=== PATIENT | female | born 2005 | race Caucasian/White ===

== ENCOUNTER 2025-10-13 07:33 | Outpatient (OUT) | payer OTHER, SELFPAY ==
--- OUTSIDE RECORDS SUMMARY | 2025-10-02 07:45 | XMS_ITS ---
Author Organization [facility] vices Address [address], [place] [id number] Care Team Providers Care Professional Bass Fisher Name Role Phone Marisol Hood Primary Care Provider Allergies Allergen (clinical drug ingredient) Drug/Non Drug Allergy documented on EMR Reaction Allergy Type Onset Date Status sulfamethoxazole / trimethoprim Bactrim Comments: hives Drug Allergy Active Results Component Value Reference Range Notes TSH WITH FT4 REFLEX Reviewed date:10/03/2025 08:48:03 AM Interpretation: Performing Lab: Notes/Report: TSH 0.289 0.270-4.200 uIU/mL The [employer] (CINDY) recommends the following reference ranges for TSH levels during : First trimester: 0.1 to 2.5 mIU/L Second trimester: 0.2 to 3.0 mIU/L Third trimester: 0.3 to 3.0 mIU/L UNLESS OTHERWISE INDICATED, ALL TESTING PERFORMED AT: [employer] [address] [place] [address] [employer] LOOM TENDER: SIM MUNOZ M.D. CLIA NUMBER [id number] [facility] ACCREDITATION AUID [id number] Reason For Referral Reason dizziness episode wi th associated speech trouble and right hand numbness Diagnosis 1 Dizziness (R42) Diagnosis 2 Seizure (R56.9) Referral Organization Main Referring Provider First Name Marisol Referring Provider Last Name Erwin Referring Provider Speciality Internal M edicine Referred Provider [facility] N eurology Referred Provider Specialty Neurology Referral Priority Routine REASON FOR VISIT [facility] d/c 09/27, Stroke like symptoms Medications Medication SIG (Take, Route, Frequency, Duration) Notes Start Date End Date Status Pepcid 20 MG Tablet 1 tablet at bedtime as needed Orally Once a day; Duration: 90 days 01/18/2022Not-Taking/PRN Social History Sex Assigned At : Social History Observation Description Sex Assigned At Female Social History Sexual History:Social InfoQuestionAnswerNotesFamily PlanningAre you or your partner planning on becoming in the next year if not already ? No Vital Signs Temperature 99.7 degrees Fahrenheit 10/02/20 25 Blood pressure systolic 95 mm Hg 10/02/20 25 Blood pressure diastolic 65 mm Hg 025 Heart Rate 68 /min 10/02/2025 Height 63.00 in 10/02/2025 Weight 123.7 lbs 10/02/2025 BMI 21.91 kg/m2 10/02/2025 Oximetry 99 % 10/02/2025 Height-cm 160.02 cm 10/02/2025 Weight-kg 56.11 kg 10/02/2025 Rosy Hess 10/02/2025 1 2:53:47 PM EST > Encounters Encounter Location Date Provider Diagnosis Main [address] [place], [place] [id number] 10/02/2025 Marisol Erwin Dizziness R42 ; Subc linical hyperthyroidism E05.90 and Seizure R56.9 Assessments Encounter Date Diagnosis (ICD Code) Assessment Notes Treatment Notes Treatment Clinical Notes Section Notes 10/02/2025 Dizziness (ICD-10 - R42) Unclear etiology, differentials considered seizure, migraine with aura, anxiety related, metabolic causes. Will get MRI to rule out brain etiologies. Also with her prior hx of seizure I will refer her to neurologist to establish care. 10/02/2025Subclinical hyperthyroidism (ICD-10 - E05.90)Prior hx, no recent labs 10/02/2025Seizure (ICD-10 - R56.9) Plan Of Treatment Treatment Notes Assessment Notes Dizziness Unclear etiology, di fferentials considered seizure, migraine with aura, anxiety related, metabolic causes. Will get MRI to rule out brain etiologies. Also with her prior hx of seizure I will refer her to neurologist to establish care. Subclinical hyperthyroidism Prior hx, no recent labs Referrals Referral Date Details 10/02/2025 10/02/2025, dizzines s episode with associated speech trouble and right hand numbness, [facility] Next Appt Details Follow Up: 4 Weeks, Reason: dizziness episode Provider Name:Marisol Hood, 11/04/2025 10:30:00 AM, [address], [place], [id number], History and Physical Notes * HPI (History of Present Illness) CategorySub-CategoryDetailNotesCategory NotesInterim History ER f/u: Pt was seen in ER on 09/27 with c/o dizziness associated with difficulty speaking and tingling in right hand started around noon and by the time in ER her symptoms resolved. Blood work including cbc cmp, trop and urine drug screen negative, CT head unremarkable. Pt was discharged with a plan to f/u in outpatient setting Presented today for f/u: She has similar symptoms when she was 11 or 12 where she was texting somebody and writing wrong word but cannot control despite knowing and right hand was numb. this time similar thing happened that she was saying wrong words and customer at work witnessed. Little bit of headache but no more symptoms when she went to ER. Today She states that her symptoms have resolved. She had a bit of a headache the day after her ER visit, but it went away A while ago in 2020 she had a seizure but when she went to hospital they couldnt find anything wrong. She was seeing a neurologist but no diagnosis was made. She also reports really sharp pain in head lasted few seconds before this dizziness episode. No more headache No concerns of anxiety or depression per pt. Denies fever/chills/nausea/ urinary or abdominal complains Examination CategorySub-CategoryDetailNotesCategory NotesGeneral Examination General appearance: alert, pleasant, well-nourished and in no acute distress. Head: normocephalic, atraumatic. Eyes: pupils equal, round, reactive to light and accommodation. Skin: skin is warm and dry, with no rashes, good skin turgor and normal hair distribution. Heart: regular rate and rhythm without murmurs, gallops, clicks or rubs. Lungs: clear to auscultation bilaterally, with good air movement and no rales, rhonchi or wheezes. Extremities: normal extremity with no clubbing, cyanosis or edema , full range of motion. Neurologic exam unremarkable, power in upper and lower extremety normal Psych: alert and oriented x 3 , cooperative with exam , normal affect / mood , speech is clear and coherent. CQM ExceptionsCurrently taking Aspirin:Aspirin Use:: No Consultation Request Notes Referral Date Referring Provider Referred Provider Not es 10/02/[address] [facility] ed Neurology, dizziness episode with associated speech trouble and right hand numbness Progress Notes * Alice MATHEW LDOB: 3 (20 yo F)Acc No.[id number]:10/02/2025 Medical Note Patient: Alice WINSTON :?Marisol Hood, MDDOB:2005???Age:20 Y???Sex: FemaleDate:10/02/2025Phone:[phone]:[address]Pcp:Stacey Lorenz In:12:46 PM EST Subjective: * Chief Complaints: * P [facility] d/c 09/27, Stroke like symptoms * HPI: ???Interim History:? ER f/u: Pt was seen in ER on 09/27 with c/o dizziness associated with difficulty speaking and tingling in right hand started around noon and by the time in ER her symptoms resolved. Blood work including cbc cmp, trop and urine drug screen negative, CT head unremarkable. Pt was discharged with a plan to f/u in outpatient setting Presented today for f/u: She has similar symptoms when she was 11 or 12 where she was texting somebody and writing wrong word but cannot control despite knowing and right hand was numb. this time similar thing happened that she was saying wrong words and customer at work witnessed. Little bit of headache but no more symptoms when she went to ER.? Today She states that her symptoms have resolved. She had a bit of a headache the day after her ER visit, but it went away A while ago in 2020 she had a seizure but when she went to hospital they couldnt find anything wrong. She was seeing a neurologist but no diagnosis was made. She also reports really sharp pain in head lasted few seconds before this dizziness episode. No more headache No concerns of anxiety or depression per pt.? Denies fever/chills/nausea/ urinary or abdominal complains. * ROS: ???Negative except mentioned above in the HPI. * Medical History: Anxiety/Depression, ProblemStatus: Active, ,? * Surgical History: None, ProblemStatus: Active, 2021-10-25? * Hospitalization/Major Diagno stic Procedure: Denies Past Hospitalization? * Family History: M igrated Family History: Brother(s), AttributeTitle: Stable, ProblemStatus: Active, ,Father, AttributeTitle: Stable, ProblemStatus: Active, ,Grandparents (maternal), AttributeTitle: , ProblemStatus: Active, ,Grandparents (paternal), AttributeTitle: Unknown, ProblemStatus: Active, ,Mother, AttributeTitle: Stable, ProblemStatus: Active, ,Sister(s), AttributeTitle: Stable, ProblemStatus: Active . * Social History: ???Sexual History:?Family Planning?Are you or your partner planning on becoming in the next year if not already ??No * Medications: N ot-Taking/PRNPepcid 20 MG Tablet 1 tablet at bedtime as needed Orally Once a day Medication List reviewed and reconciled with the patientNot-Taking/PRN Pepcid 20 MG Tablet 1 tablet at bedtime as needed Orally Once a day Medication List reviewed and reconciled with the patient * Allergies: B actrim: Comments: hives - Allergyno[Allergies Verified] Objective: * Vitals: T emp:99.7F, Wt:123.7lbs, Ht: 63.00 in, BMI:21.91Index, BP:95/65mm Hg, HR:68/min, Pain scale:01-10, Oxygen sat %:99%, Wt-k.11 kg, Ht-cm: 160.02 cm, Body Surface Area: 1.58. Deshawn Rosy 10/02/2025 12:53:47 PM EST >. * Examination: ???CQM Exceptions: ?Currently taking Aspirin:? Aspirin Use:?General Examination: ???General appearance: alert, pleasant, well-nourished and in no acute distress. Head: normocephalic, atraumatic. Eyes: pupils equal, round, reactive to light and accommodation. Skin: skin is warm and dry, with no rashes, good skin turgor and normal hair distribution. Heart: regular rate and rhythm without murmurs, gallops, clicks or rubs. Lungs: clear to auscultation bilaterally, with good air movement and no rales, rhonchi or wheezes. Extremities: normal extremity with no clubbing, cyanosis or edema , full range of motion. Neurologic exam unremarkable, power in upper and lower extremety normal Psych: alert and oriented x 3 , cooperative with exam , normal affect / mood , speech is clear and coherent. Assessment: * Assessment: 1.?Dizziness - R42 (Primary)???2.?Subclinical hyperthyroidism - E05.90 ([facility])???3.?Seizure - R56.9??? Plan: * Treatment: ?Imaging: MR head/brain w con* Notes: Unclear etiology, differentials considered seizure, migraine with aura, anxiety related, metabolic causes. Will get MRI to rule out brain etiologies. Also with her prior hx of seizure I will refer her to neurologist to establish care.? Referral To: [facility] Neurology??Neurology ?Reason:dizziness episode with associated speech trouble and right hand numbness 2.?Subclinical hyperthyroidism?LAB: TSH WITH FT4 REFLEX Notes: Prior hx, no recent labs??3.?Seizure? Referral To: [facility] Neurology??Neurology ?Reason:dizziness episode with associated speech trouble and right hand numbness * Procedure Codes: 3 078F HTN DIAST BP < 781661W HTN SYST BP < 130 * Follow Up: 4 Weeks (Reason: dizziness episode) * Billing Information: * Visit Code: 36575 Office Visit Est 20-29 minutes. * Procedure Codes: 3078F HTN DIAST BP < 80. 3074F HTN SYST BP < 130. * ign off status: Completed true * Provider: Rae Hood MD Date: 12/02/2024 Generated for Printing/Faxing/eTransmitting on:?10/13/2025 07:35 AM EST
--- OUTSIDE RECORDS SUMMARY | 2025-10-08 03:34 | XMS_ITS ---
Author Organization [facility] vices Address [address] [place], [place] [id number] Care Team Providers Care Green Hide Inspector Name Role Phone Marisol Hood Primary Care Provider [phone] REASON FOR VISIT MRI order Social History Sex Assigned At : Social History Observation Description Sex Assigned At Female Encounters Encounter Location Date Provider Diagnosis Main [address] [place], [place] [id number] 10/08/2025 Marisol Binghaml Dizziness R42 Assessments Encounter Date Diagnosis (ICD Code) Assessment Notes Treatment Notes Treatment Clinical Notes Section Notes 10/08/2025 Dizziness (ICD-10 - R42) Plan Of Treatment Pending Test Test Name Order Date MRI : Brain with and without contrast Next Appt Details Provider Name:Marisoljaky Hood, 11/04/2025 10:30:00 AM, [address] [place], [place], [id number], Progress Notes * Alice MATHEW LDOB: 3 (20 yo F)Acc No.[id number]:10/08/2025 Patient:?Alice MATHEW :2005???Age:20 Y???Sex:FemalePhone:[phone] Address:[address], [address] Subjective: * Chief Complaints: * M RI order Assessment: * Assessment: 1.?Dizziness - R42 (Primary)??? Plan: * Treatment: ?Imaging: MRI : Brain with and without contrast* Marisol Hood 10/08/2025 10: 53:23 AM EST > with associated neurologic changes * * true * Date:?Generated for Printing/Faxing/eTransmitting on:?10/13/2025 07:35 AM EST
--- NOTE | 2025-10-13 07:35 | MR_ITS ---
[address] [address] Patient Name: JENIFFER DORANTES MRN: [id number] date: 2005 Sex: F Assigned Patient Location: MRI Current Patient Location: MRI Accession/Order Number: [id number] Exam Date: 10/13/2025 07:50 Report Date: 10/13/2025 11:45 At the request of: CLAUDIA YIP MD Procedure: MR head/brain wo/w con MR head/brain wo/w con 10/13/2025 8:34 AM SIGN AND SYMPTOMS: Dizziness, headaches PROTOCOL: Multiplanar multisequence MR images of the brain with and without IV contrast CONTRAST: 11 mL of intravenous Dotarem COMPARISON: None. FINDINGS: Extra axial spaces: Age appropriate. Hemorrhage: None. Ventricular system: Within normal limits. Basal cisterns: Within normal limits and not effaced. Cerebral parenchyma: Normal in signal. Midline shift: None.. Cerebellum: Within normal limits. Brainstem: Within normal limits. OTHER: Calvarium: Normal marrow signal. Vascular system: Satisfactory flow voids within the anterior and posterior circulation. Visualized Paranasal sinuses: Within normal limits. Visualized Orbits: Within normal limits. Visualized upper cervical spine: Within normal limits. Sella and skull base: Within normal limits. MR/MR head/brain wo/w con IMPRESSION: No acute intracranial pathology or abnormal postcontrast enhancement. Impression dictated by: Gabo Velásquez M.D. 10/13/2025 11:45 AM Dictation Location: [place] [address] Electronically authenticated by: [id number] Y Date: 10/13/2025 11:45
--- OUTSIDE RECORDS SUMMARY | 2025-10-13 07:35 | XMS_ITS | Clinical Summary ---
Author Organization [facility] [employer] [facility] tem Address [id number] [address] [place] [address] Care Team Providers Care Kennel Staff Member Name Role Phone No Pcp, No Pcp Primary Care Provider Unavailabl e Allergies Active AllergyReactionsCriticalityNoted DateComments Sulfamethoxazole-TvbyqejncordTlvwv19/07/2018 Medications MedicationSigDispense QuantityRefillsLast FilledStart DateEnd DateStatus famotidine (PEPCID) 20 mg tablet Take 1 tablet (20 mg total) by mouth 2 (two) times a day. 20 tablet 1Active Additional Information Patient not taking.Reported on 09/27/2025 erythromycin (ILOTYCIN) ophthalmic ointment Place a 1/2 inch ribbon of ointment into the lower eyelid 4 times a day for 7 days. 3.5 g 2Active Additional Information Patient not taking.Reported on 09/27/2025 Active Problems No known active problems Encounters DateTypeDepartmentCare AbapDqyjrbyngkh13/08/2025 2:49 PM EST - 09/27/2025 5:05 PM ESTEmergency [facility] [address] [place] [address] Lazaro Ahumada MD Dizziness (Primary Dx) Discharge Disposition: Home09/27/2025Travelfrom Last 3 Months Social History Tobacco UseTypesPacks/DayYears UsedDateSmoking Tobacco: NeverSmokeless Tobacco: NeverAlcohol UseStandard Drinks/WeekCommentsNo0 (1 standard drink = 0.6 oz pure alcohol)ChildcareAnswerDate SfdaelvoEkzliztjtCnzlfns88/12/2019EmploymentAnswer Date TfgvbbgjPlpzfwpggkHqsvxbc22/12/2019Hunger ScreeningAnswerDate Recorded Within the past 12 months we worried whether our food would run out before we got money to buy more.Never True09/27/2025Within the past 12 months the food we bought just didn't last and we didn't have money to get more.Never True 09/27/2025CommentsUnknownSex and Gender InformationValueDate RecordedSex Assigned at BirthNot on fileLegal UuzBgyykh57/06/2015 12:01 PM EDTGender IdentityNot on fileSexual OrientationNot on file Last Filed Vital Signs Vital SignReadingTime TakenCommentsBlood Ekzowujf465/7709/27/2025 3:10 PM EST Ntqbd182309/27/2025 3:10 PM ABNEbcaajxnnzp81.6 ??C (97.9 ??F)09/27/2025 2:53 PM ESTRespiratory Dvze559011/27/2024 3:10 PM ESTOxygen Bekbbyoecv978%09/27/2025 3:10 PM ESTInhaled Oxygen Concentration--Iqftde63.4 kg (120 lb)09/27/2025 2:53 PM EST Dflmlq035.6 cm (5' 4 )10/24/2021 5:00 AM ESTBody Mass Index20.6112/25/2020 5:00 AM EST Plan of Treatment Health MaintenanceDue DateLast DoneCommentsDepression Nmgujcwkq68/25/2015Pap Smear4COVID-19 Vaccine ( season)/11/2020, 03/23/2021Influenza Lbmvufn4307/21/2025DTaP,Tdap and Td Vaccines (5 - Td or Tdap) , 2003, 2003, Additional history existsAdult BMI Fwtflpfhq41Tobacco Tjggmigus23 Medical Devices Not on file Procedures Procedure NamePriorityDate/TimeAssociated DiagnosisCommentsTROP I, HIGH SENSITIVITY 1 TAYFYMIA56/08/2025 3:[address] BRAIN WO RDPODRPK59/08/2025 3:42 PM EST POCT , URINE (NUCG)Xoqruja6709/27/2025 3:23 PM EST POCT NURSING URINE MACROSCOPIC YTKtngjje20/08/2025 3:21 PM EST DRUG SCREEN, KTHDAJUSX89/08/2025 3:19 PM EST ER EXTRA URINE MTJBQGJMRB31/08/2025 3:19 PM EST ER EXTRA URINE JWTHRVFDOFP88/08/2025 3:19 PM EST ER EXTRA NQPDBBHAJ30/08/2025 3:19 PM EST TROPONIN I, HIGH SENSITIVITY 0 CRNEDPSR50/08/2025 3:03 PM EST TROPONIN I, HIGH SENSITIVITY 0 HAJRKPQG55/08/2025 3:03 PM EST AAFZZKMZMMFWX78/08/2025 3:03 PM EST D-TMLJBIACY66/08/2025 3:03 PM EST COMPREHENSIVE METABOLIC PBVMHVDYA00/08/2025 3:03 PM EST CBC WITH AUTO TILSTYIBESCGDAGT28/08/2025 3:03 PM EST ECG 12-AVDJUOQB45/08/2025 2:56 PM EST from Last 3 Months Results * Troponin I, High Sensitivity 1 Hour (09/27/2025 3:59 PM EST)ComponentValueRef RangeTest MethodAnalysis TimePerformed AtPathologist SignatureTROPONIN I, HIGH SENSITIVITY<2<16 ng/L111/27/2024 4:34 PM ESTPROM[facility] Specimen (Source)Anatomical Location / LateralityCollection Method / Volume Collection TimeReceived TimeBloodVenous blood / UnknownVenipuncture / Unknown 09/27/2025 3:59 PM EST09/27/2025 4:04 PM EST Narrative Authorizing ProviderResult TypeResult StatusAmber William HAIRSPRING INSPECTOR-CNPLAB BLOOD ORDERABLESFinal ResultPerforming OrganizationAddressCity/State/ZIP CodePhone Number PROMEDICVimal [address] [place] [address], * CT brain without contrast (09/27/2025 3:42 PM EST)Anatomical RegionLaterality ModalityNeuro, Head, Head and Neck, Neuro CoveraN/AComputed TomographySpecimen (Source)Anatomical Location / LateralityCollection Method / VolumeCollection TimeReceived Time09/27/2025 3:47 PM EST Narrative 09/27/2025 3:[address] BRAIN WO CONT 09/27/2025 3:34 PM INDICATION: dizziness, difficulty speaking, tingling in right hand COMPARISON: None. TECHNIQUE: Serial axial images were obtained on a multidetector CT through the head without the useof intravenous contrast, as per the standard departmental protocol. Multiplanar 2D MPR reformatted images were then generated. FINDINGS: Brain & Extra-Axial Spaces: No high grade ventricular outflow obstruction. No extra-axial fluidcollection. No acute infarct, intraparenchymal hemorrhage, or mass effect. Preserved parenchymal hernandez-white matter differentiation. Pneumatized Spaces: Well aerated paranasal sinuses and mastoid air cells. Osseous/Soft Tissues: No displaced calvarial fracture. No scalp hematoma. Globes intact. IMPRESSION: * ??No acute intracranial process. Approved by Resident: Jacobo Boyle MD ??on 09/27/2025 3:47 PM Zoltan Cheng MD have personally reviewed the image(s) and agree with and/or edited the report Finalized by Zoltan Rendon MD on 09/27/2025 3:53 PM Procedure Note Zoltan Rendon MD - 09/27/2025 CT BRAIN WO CONT 09/27/2025 3:34 PM INDICATION: dizziness, difficulty speaking, tingling in right hand COMPARISON: None. TECHNIQUE: Serial axial images were obtained on a multidetector CT throughthe head without the use of intravenous contrast, as per the standarddepartmental protocol. Multiplanar 2D MPR reformatted images were thengenerated. FINDINGS: Brain & Extra-Axial Spaces: No high grade ventricular outflow obstruction.No extra-axial fluid collection. No acute infarct, intraparenchymalhemorrhage, or mass effect. Preserved parenchymal hernandez-white matterdifferentiation. Pneumatized Spaces: Well aerated paranasal sinuses and mastoid aircells. Osseous/Soft Tissues: No displaced calvarial fracture. No scalp hematoma.Globes intact. IMPRESSION: * No acute intracranial process. Approved by Resident: Jacobo Boyle MD on 09/27/2025 3:47 PM IZoltan MD have personally reviewed the image(s) and agree withand/or edited the report Finalized by Zoltan Rendon MD on 09/27/2025 3:53 PM Authorizing ProviderResult TypeResult StatusJuliette Thomas HAIRSPRING INSPECTOR-CNPIM CT ORDERABLESFinal Result * POCT , urine (09/27/2025 3:23 PM EST)ComponentValueRef RangeTest MethodAnalysis TimePerformed AtPathologist SignatureKER[facility] Urine NegativeNegative, Cfuomsernaixx91/08/2025 3:30 PM [facility] TOLEDOpecimen (Source)Anatomical Location / LateralityCollection Method / VolumeCollection TimeReceived WvcpMbrmm64/08/2025 3:23 PM EST 09/27/2025 3:30 PM EST Narrative Authorizing ProviderResult TypeResult Ruby Ahumada [facility] TEST ORDERABLESFinal ResultPerforming OrganizationAddressCity/State/ZIP CodePhone Number [place] [address] [place] [address], * POCT Nursing Urine Macroscopic UA (09/27/2025 3:21 PM EST)ComponentValueRef RangeTest MethodAnalysis TimePerformed AtPathologist SignatureKERBS [facility] Urine Specific Gravity1.0151.010, 1.015, 1.020, 1.3081209/27/2025 3:24 PM [facility] Urine Leukocyte EsteraseNegativeNegative 09/27/2025 3:24 PM ESTPR[facility] Urine Nitrite WwzzppqiLfpaiffx39/08/2025 3:24 PM ESTPROVA [facility]TO [facility] Urine pH7.55.0, 6.0, 6.5, 7.0, 7.5, 8.0, 8.5, 5. 3:24 PM EST [facility] Urine SeqdengTkwhbbpvPethveof95/08/2025 3:24 PM ESTPROMED[facility] Urine GlucoseNegative Qxjzhkqp93/08/2025 3:24 PM ESTPROMED[facility] Urine DkcrjylMxxxfqnnUmdteldf61/08/2025 3:24 PM ESTPROM[facility] Urine Urobilinogen0.2 E.U./dL09/27/2025 3:24 PM ESTPROMED[facility] Urine LivkglepoOpbdphzfNvkbyacs09/08/2025 3:24 PM ESTPROMED[facility] Urine Blood/HGBNegativeNegative 09/27/2025 3:24 PM [facility] (Source) Anatomical Location / LateralityCollection Method / VolumeCollection Time Received HrcsHevud90/08/2025 3:21 PM EST09/27/2025 3:24 PM EST Narrative Authorizing ProviderResult TypeResult StatusLazaro Ahumada [facility] TEST ORDERABLESFinal ResultPerforming OrganizationAddressCity/State/ZIP CodePhone Number [place] [address] [facility] [place] [address], * Extra Urine Bigler (09/27/2025 3:19 PM EST)ComponentValueRef RangeTest Method Analysis TimePerformed AtPathologist SignatureExtra TubeAuto Resulted 09/27/2025 5:01 PM [facility] (Source) Anatomical Location / LateralityCollection Method / VolumeCollection Time Received TimeUrineUrine specimen collection, clean catch / Lwkoqht0609/27/2025 3:19 PM EST09/27/2025 4:05 PM EST Narrative Authorizing ProviderResult TypeResult StatusAmber William HAIRSPRING INSPECTOR-CNPURINE ORDERABLESFinal ResultPerforming OrganizationAddressty/State/ZIP CodePhone Number [address] [place] [address], [place] * Extra Urine Culture (09/27/2025 3:19 PM EST)ComponentValueRef RangeTest Method Analysis TimePerformed AtPathologist SignatureExtra TubeAuto Resulted 09/27/2025 5:01 PM [facility] (Source) Anatomical Location / LateralityCollection Method / VolumeCollection Time Received TimeUrineUrine specimen collection, clean catch / Cjwvbgd4809/27/2025 3:19 PM EST09/27/2025 4:05 PM EST Narrative Authorizing ProviderResult TypeResult StatusAmber William HAIRSPRING INSPECTOR-CNPURINE ORDERABLESFinal ResultPerforming OrganizationAddressCity/State/ZIP CodePhone Number [address] [place] [address], [place] * Extra Urine (09/27/2025 3:19 PM EST)ComponentValueRef RangeTest MethodAnalysis TimePerformed AtPathologist SignatureExtra TubeAuto Ybyhdagt93/08/2025 5:01 PM [facility] (Source)Anatomical Location / LateralityCollection Method / VolumeCollection TimeReceived TimeUrineUrine specimen collection, clean catch / Cyiimgl7409/27/2025 3:19 PM EST09/27/2025 4:05 PM EST Narrative Authorizing ProviderResult TypeResult StatusAmber William HAIRSPRING INSPECTOR-CNPURINE ORDERABLESFinal ResultPerforming OrganizationAddAllegheny Valley Hospitalty/State/ZIP CodePhone Number [address] [place] [address], * Drug Screen, Urine (09/27/2025 3:19 PM EST)ComponentValueRef RangeTest Method Analysis TimePerformed AtPathologist SignatureAMPHETAMINE/METHAMPNegative Grzhkevi76/08/2025 4:25 PM [facility]Comment: AMPH/METH screening cut off = 1000 ng/mLCOCAINE METABOLITENegativeNegative 09/27/2025 4:25 PM [facility]Comment:Cocaine screening cut off value = 300 ng/lUHFGTKGPTqtoqfqsNkgdhgkj60/08/2025 4:25 PM [facility]Comment:Ecstasy screening cut off value = 500 ng/rSCNOQLKZKKRueqrcwsCkbcfxcf46/08/2025 4:25 PM [facility]Comment:Methadone screening cut off value = 300 ng/mL.OPIATES XacqmzbiGskbygwc17/08/2025 4:25 PM [facility] Comment: Opiates screening cut off value = 300 ng/mL This test is used for the detection of codeine, hydrocodone (>1000 ng/mL), morphine and hydromorphone (>900 ng/mL) in urine. AOGKSJWALDfbgxgeoHxfhblhn94/08/2025 4:25 PM [facility]Comment: Oxycodone screening cut off value = 300 ng/mL This test is used for the detection of oxycodone and oxymorphone in urine. HKYGHMXGWZZVNDzrqfyptYrgfnked62/08/2025 4:25 PM [facility]Comment:Phencyclidine screening cut off value = 25 ng/mLCANNABINOIDS FyhwvxvcFmbhozmi78/08/2025 4:25 PM [facility] Comment:Cannabinoids/THC screening cut off value = 50 ng/mLUrine Barbiturates QyqtzuwyEjnpnule02/08/2025 4:25 PM [facility] Comment:Barbiturates screening cut off value = 200 ng/mLBENZODIAZEPINESNegative Iaixfqam16/08/2025 4:25 PM [facility]Comment: Benzodiazepines screening cut off value = 200 ng/mLSpecimen (Source)Anatomical Location / LateralityCollection Method / VolumeCollection TimeReceived TimeUrine 09/27/2025 3:19 PM EST09/27/2025 4:05 PM EST Narrative Authorizing ProviderResult TypeResult StatusAmber William HAIRSPRING INSPECTOR-CNPURINE ORDERABLESFinal ResultPerforming OrganizationAddressCity/State/ZIP CodePhone Number [facility] [place] [address], [place] * Troponin I, High Sensitivity 0 Hour (09/27/2025 3:03 PM EST)ComponentValueRef RangeTest MethodAnalysis TimePerformed AtPathologist SignatureTROPONIN I, HIGH SENSITIVITY<2<16 ng/L111/27/2024 3:45 PM [facility] Specimen (Source)Anatomical Location / LateralityCollection Method / Volume Collection TimeReceived TimeBloodVenous blood / UnknownVenipuncture / Unknown 09/27/2025 3:03 PM EST09/27/2025 3:18 PM EST Narrative Authorizing ProviderResult TypeResult StatusAmber William HAIRSPRING INSPECTOR-CNPLAB BLOOD ORDERABLESFinal ResultPerforming OrganizationAddressCity/State/ZIP CodePhone Number [address] [place] [address], [place] * CBC auto differential (09/27/2025 3:03 PM EST)ComponentValueRef RangeTest MethodAnalysis TimePerformed AtPathologist SignatureWBC7.54 - 11 X10^9/L 09/27/2025 3:22 PM [facility]OS[facility]ITALRBC Count4.833.8 - 5.2 X10^12/L111/27/2024 3:22 PM [facility] Zlwtcsxzji41.611.7 - 15.5 g/dL09/27/2025 3:22 PM [facility]ITALHematocrit40.635 - 47 %09/27/2025 3:22 PM [facility]ITALMCV8480 - 100 fL09/27/2025 3:22 PM [facility]ITALMCH28.227 - 34 pg09/27/2025 3:22 PM [facility]ITALMCHC33.532 - 36 g/dL09/27/2025 3:22 PM [facility]ITALRDW13.311.5 - 15 %09/27/2025 3:22 PM [facility]OS[facility]ITALPlatelet Nrswn145351 - 450 X10^9/L111/27/2024 3:22 PM EST [place]MPV10.07 - 12 fL09/27/2025 3:22 PM EST [facility]ITALNeutrophils %62.3%09/27/2025 3:22 PM EST [place]ymphocytes %28.8%09/27/2025 3:22 PM EST [facility]ITALMonocytes %7.9%09/27/2025 3:22 PM EST [facility] HOS[facility]ITALEosinophils %0.7%09/27/2025 3:22 PM EST [facility]ITALBasophils %0.3%09/27/2025 3:22 PM EST [place]ENeutrophils Absolute (A)4.71.5 - 6.6 X10^9/L111/27/2024 3:22 PM ESTCENTERVILLELymphocytes Absolute2.21.0 - 3.5 X10^9/L111/27/2024 3:22 PM ESTPROANTELOPE [facility]ORIAL [facility]ITAL HOSPITALMonocytes Absolute0.60.0 - 0.9 X10^9/L111/27/2024 3:22 PM ESTPROANTELOPE MEMORIAL HOSPITAL HOSPITALEosinophils Absolute0.10.0 - 0.4 X10^9/L111/27/2024 3:22 PM ESTCENTERVILLEBasophils Absolute0.00.0 - 0.2 X10^9/L111/27/2024 3:22 PM [facility]ITALDifferential TypeAUTOMATED TDOFJSASYJPW54/08/2025 3:22 PM [facility]Opecimen (Source)Anatomical Location / LateralityCollection Method / VolumeCollection TimeReceived TimeBloodVenous blood / UnknownVenipuncture / Dhojscm5909/27/2025 3:03 PM EST09/27/2025 3:18 PM EST Narrative Authorizing ProviderResult TypeResult StatusAmber Thomas HAIRSPRING INSPECTOR-CNPLAB BLOOD ORDERABLESFinal ResultPerforming OrganizationAddressCity/State/ZIP CodePhone Number [address] [address], [place] * D-Dimer (09/27/2025 3:03 PM EST)ComponentValueRef RangeTest MethodAnalysis TimePerformed AtPathologist SignatureD DIMER<1501 - 255 ng/mL09/27/2025 3:30 PM [facility]ITALComment:Results <255 ng/mL DDU: The presensence of a VTE can safely be excluded with a negative D-Dimer result and Wells score. A negative result doesn't exclude the possibility of DIC. The test should berepeated along with other diagnostic tests if the patient's symptoms persist or worsen.Specimen (Source)Anatomical Location / Laterality Collection Method / VolumeCollection TimeReceived TimeBloodVenous blood / UnknownVenipuncture / Kbhcgze9909/27/2025 3:03 PM EST09/27/2025 3:18 PM EST Narrative Authorizing ProviderResult TypeResult StatusAmber AdverseEventsNOUYALAB BLOOD ORDERABLESFinal ResultPerforming OrganizationAddressCity/State/ZIP CodePhone Number [address] [address], [place] * Magnesium (09/27/2025 3:03 PM EST)ComponentValueRef RangeTest MethodAnalysis TimePerformed AtPathologist SignatureMAGNESIUM1.81.8 - 2.6 mg/dL09/27/2025 3:36 PM [facility]Opecimen (Source)Anatomical Location / LateralityCollection Method / VolumeCollection TimeReceived Time BloodVenous blood / UnknownVenipuncture / Aqjrgrv1509/27/2025 3:03 PM EST 09/27/2025 3:18 PM EST Narrative Authorizing ProviderResult TypeResult StatusAmber AdverseEventsNOUYALAB BLOOD ORDERABLESFinal ResultPerforming OrganizationAddressty/State/ZIP CodePhone Number [address] [address], * (ABNORMAL) Comprehensive metabolic panel (09/27/2025 3:03 PM EST)Component ValueRef RangeTest MethodAnalysis TimePerformed AtPathologist SignatureSODIUM 580451 - 146 mmol/L111/27/2024 3:36 PM [facility] POTASSIUM3.53.5 - 5.0 mmol/L111/27/2024 3:36 PM [facility]ITALCHLORIDE9998 - 109 mmol/L111/27/2024 3:36 PM [facility]OSPITALCARBON KXXZVEJ9831 - 32 mmol/L111/27/2024 3:36 PM [facility]ITALANION LNP545 - 15 mmol/L111/27/2024 3:36 PM EST [place]LEBLOOD UREA MWRYIWGX187 - 23 mg/dL09/27/2025 3:36 PM [facility] HOSPITALCREATININE0.790.40 - 1.00 mg/dL 09/27/2025 3:36 PM [facility]ITALComment:METHOD TRACEABLE TO IDMS LNMKIFLWSNSXYPP576(H)65 - 99 mg/dL09/27/2025 3:36 PM EST [place]CALCIUM9.28.5 - 10.5 mg/dL09/27/2025 3:36 PM [facility]OS[facility]ITALTOTAL PROTEIN7.56.0 - 8.0 g/dL 09/27/2025 3:36 PM [facility]PITALALBUMIN4.73.2 - 5.3 g/dL09/27/2025 3:36 PM [facility]ITALALKALINE ULECJUHLSNT0946 - 130 U/L111/27/2024 3:36 PM [facility]ITALAST21<=41 U/L111/27/2024 3:36 PM [facility] ALT19<=31 U/L111/27/2024 3:36 PM [facility] BILIRUBIN,TOTAL0.50.3 - 1.2 mg/dL09/27/2025 3:36 PM [facility] HOSPITALEGFR Non-Race Dependent>90>=60 ml/min/1.73sq.m111/27/2024 3:36 PM ESTPROMEDICA FREMONT [facility]IAL [facility]PITALComment: eGFR not reported due to non-numeric value for Creatinine. Reported eGFR is based on the CKD-EPI 2020 equation that does not use a race coefficient. Specimen (Source)Anatomical Location / LateralityCollection Method / Volume Collection TimeReceived TimeBloodVenous blood / UnknownVenipuncture / Unknown 09/27/2025 3:03 PM EST09/27/2025 3:18 PM EST Narrative Authorizing ProviderResult TypeResult StatusAmber William HAIRSPRING INSPECTOR-CNPLAB BLOOD ORDERABLESFinal ResultPerforming OrganizationAddressCity/State/ZIP CodePhone Number [facility] [address] [facility] [place] [address], [place] * ECG 12 lead (09/27/2025 2:56 PM EST)Specimen (Source)Anatomical Location / LateralityCollection Method / VolumeCollection TimeReceived Time09/27/2025 2:56 PM EST Narrative [place] - 09/28/2025 8:05 AM EST Authorizing ProviderResult TypeResult StatusAmber William GONZALEZN-CNPECG ORDERABLES Final ResultPerforming OrganizationAddressCity/State/ZIP CodePhone Number [place] from Last 3 Months Insurance * Guarantor: Alice Mathew TypeRelation to PatientDate of BirthPhone Billing AddressPersonal/XjtixiUzav[address] [address] * Guarantor: Lynda MATHEW TypeRelation to PatientDate of BirthPhone Billing AddressPersonal/LamidhRdpbmw12/27/1979 [address] [place] [address] Care Teams Team MemberRelationshipSpecialtyStart DateEnd Date No Pcp, No Pcp FANY Lyn [phone] [facility] Qlvlgvbg76/8/25
--- OUTSIDE RECORDS SUMMARY | 2025-10-13 07:35 | XMS_ITS | Clinical Summary ---
Author Organization [facility] Address [address] [place] [address] Phone Care Team Providers Care Supervisor Aircraft Maintenance Name Role Phone Lillian Dugan A PhD Primary Care Provider Un available Allergies Active AllergyReactionsCriticalityNoted DateComments Sulfamethoxazole-RpbgtpufitaaQblxpIczh14/19/2024 Active Problems ProblemNoted DateDiagnosed DateAtypical chest pain0240Rwpiaqmmyt05/19/2024 Syncope, temossmnpvn19/19/2024Unexplained weight loss12/08/2023 Immunizations ImmunizationAdministration DatesNext DueDTaP vaccine, pediatric (INFANRIX) 2003Meningococcal ACWY vaccine (MENVEO)08/25/2020Moderna SARS-CoV-2 Nscbnqpsemk20/01/2021,1Pneumococcal Conjugate PCV Tdap vaccine, age 7 year and older (BOOSTRIX, ADACEL)08/21/2015 Family History Medical HistoryRelationNameCommentsNo Known ProblemsMotherRelationNameStatus CommentsMother Social History Tobacco UseTypesPacks/DayYears UsedDateSmoking Tobacco: NeverSmokeless Tobacco: Never Tobacco Cessation:Counseling Given: Not Answered Alcohol UseStandard Drinks/WeekCommentsNever0 (1 standard drink = 0.6 oz pure alcohol)CommentsUnknownSex and Gender InformationValueDate RecordedSex Assigned at BirthNot on fileLegal MtgHxwgkj96/26/2022 4:51 PM ESTGender Identity Not on fileSexual OrientationNot on file Last Filed Vital Signs Vital SignReadingTime TakenCommentsBlood Pczikspo239/8207 2:27 PM EDT Eihmz8479 2:27 PM EDTTemperature--Respiratory Rate--Oxygen Saturation-- Inhaled Oxygen Concentration--Vquxgx17.9 kg (110 lb)05/29/2023 2:27 PM EDTHeight 157.5 cm (5' 2 )05/29/2023 2:27 PM EDTBody Mass Index20.1207 2:27 PM EDT Plan of Treatment Health MaintenanceDue DateLast DoneCommentsHIV Cfwyabiot2003Lipid Panel 2003Yearly Adult Muhwozou2003Hepatitis B Vaccines (3 of 3 - 3-dose series), 2003MMR Vaccines (1 of 1 - Standard series) 2004IPV Vaccines (4 of 4 - 4-dose series), 2003, 2003HPV Vaccines (1 - 3-dose series)2018Meningococcal B Vaccine (1 of 2 - Standard)2019Hepatitis C Sjevvetup08/25/2021ervical Cancer Cnyisgiih81/25/2024HPV/Bvuzmj564Pap Smear2024Influenza Vaccine (#1) 5COVID-19 Vaccine (3 - season)/11/2020, 03/23/2021 DTaP/Tdap/Td Vaccines (5 - Td or Tdap)/12/2014, 2003, 2003, Additional history existsZoster Vaccines (1 of 2)2053HIB VaccinesAged Out2003, 2003No longer eligible based on patient's age to complete this topicPneumococcal Vaccine: Pediatrics and At-Risk Adult PatientsAged Out2003, 2003, 2003No longer eligible based on patient's age to complete this topicMeningococcal MngqbfsPnngezyzt63/06/2020 Hepatitis A VaccinesAged OutNo longer eligible based on patient's age to complete this topicRotavirus VaccinesAged OutNo longer eligible based on patient's age to complete this topic Insurance * Guarantor: Meagan Mathew TypeRelation to PatientDate of BirthPhone Billing AddressPersonal/LtbbygQgpz[address] [place] [address] * Guarantor: Meagan Mathew TypeRelation to PatientDate of BirthPhone Billing AddressPersonal/BoaypnAwca[address] [place] [address] Care Teams Team MemberRelationshipSpecialtyStart DateEnd Date Lillian Dugan, PhD PCP - GeneralPsychology06/05/24
== END 2025-10-13 07:34 | disposition home or self-care (01) ==
LOC: MRI 07:33
PROVIDERS: Visit Provider Internal Medicine
DX: R42 Dizziness and giddiness (principal)
CPT/HCPCS: 70553; A9575